=== PATIENT | male | born 1975 | race Hispanic/Latino ===

== ENCOUNTER 2020-11-07 23:44 | Emergency (ER) | payer SELFPAY ==
[~2020-11-07] VITALS: Ht 167.6 cm; Wt 77.1 kg
[2020-11-08 00:23] VITALS: BP 103/62
[2020-11-08] MEDS ORDERED: CLINDAMYCIN IVPB 600MG/50ML 50 ML IV SCH (02:00)
[2020-11-08 02:19] VITALS: BP 105/63
[2020-11-08 02:22] LABS: BASOPHILS % (AUTO) 0.5 % (0.0-5.0); EOSINOPHILS % (AUTO) 5.9 % (0.0-8.0); HEMATOCRIT 38.4 % (42-54); MEAN CORPUSCULAR HEMOGLOBIN 31.7 pg (27.0-33.0); MEAN CORPUSCULAR HGB CONC 34.4 g/dL (32.0-36.0); MEAN CORPUSCULAR VOLUME 92.1 fL (79-99); MONOCYTES % (AUTO) 11.2 % (3.0-13.0); NEUTROPHILS % (AUTO) 58.1 % (40.0-77.0); PLATELET COUNT (AUTO) 299 K/uL (130-400); RED BLOOD CELL COUNT(AUTO) 4.17 MIL/uL (4.50-6.20); RED CELL DISTRIBUTION WIDTH 13.5 % (11.0-15.5); WHITE BLOOD COUNT (AUTO) 7.8 K/uL (4.8-10.8)
[2020-11-08 02:33] LABS: POTASSIUM 3.8 mmol/L (3.5-5.1)
[2020-11-08 02:37] LABS: ALBUMIN 3.3 g/dL (3.5-5.0); BILIRUBIN,TOTAL 0.2 mg/dL (0.2-1.0); TOTAL PROTEIN, SERUM 7.2 g/dL (6.0-8.3)
[2020-11-08 03:51] VITALS: BP 103/50
[2020-11-08] MEDS ORDERED: CLIN300C10 PO (04:16)
[2020-11-08] MEDS ORDERED: IBUP-2070 PO (04:16)
== END 2020-11-08 05:07 | disposition home or self-care (01) ==
LOC: EDH 23:44
DX: L02.414 Cutaneous abscess of left upper limb (principal); L03.114 Cellulitis of left upper limb; R73.9 Hyperglycemia, unspecified; F17.200 Nicotine dependence, unspecified, uncomplicated
CPT/HCPCS: 10060; 36415; 73090; 80053; 85025; 96365; 99284; J3490

== ENCOUNTER 2020-12-25 23:21 | Emergency (ER) | payer SELFPAY ==
[~2020-12-25] VITALS: Ht 167.6 cm; Wt 70.8 kg
[~2020-12-25 23:21] MED LIST: CLIN-141 PO; IBUP-2070 PO
[2020-12-25 23:27] VITALS: BP 123/66
[2020-12-26] MEDS ORDERED: KETOROLAC 15MG/ML VIAL (15MG/ML) IV ONE
[2020-12-26] MEDS ORDERED: CEFTRIAXONE 1G VIAL IVP ONE
[2020-12-26 00:45] LABS: BASOPHILS % (AUTO) 0.8 % (0.0-5.0); EOSINOPHILS % (AUTO) 5.4 % (0.0-8.0); HEMATOCRIT 41.3 % (42-54); LYMPHOCYTES % (AUTO) 29.3 % (21.0-51.0); MEAN CORPUSCULAR HEMOGLOBIN 31.3 pg (27.0-33.0); MEAN CORPUSCULAR HGB CONC 33.7 g/dL (32.0-36.0); MONOCYTES % (AUTO) 10.7 % (3.0-13.0); NEUTROPHILS % (AUTO) 53.5 % (40.0-77.0); PLATELET COUNT (AUTO) 362 K/uL (130-400); RED BLOOD CELL COUNT(AUTO) 4.44 MIL/uL (4.50-6.20); RED CELL DISTRIBUTION WIDTH 13.2 % (11.0-15.5); WHITE BLOOD COUNT (AUTO) 6.5 K/uL (4.8-10.8)
[2020-12-26 00:47] LABS: CREATININE 0.9 mg/dL (0.5-1.5); POTASSIUM 3.6 mmol/L (3.5-5.1)
[2020-12-26 00:52] LABS: ALBUMIN 3.8 g/dL (3.5-5.0); BILIRUBIN,TOTAL 0.3 mg/dL (0.2-1.0); CRP QUANTITATIVE 13.5 mg/L (0.00-9.0)
[2020-12-26] MEDS ORDERED: NAPR-1180 PO (01:28)
[2020-12-26] MEDS ORDERED: CEPH500B PO (01:28)
[2020-12-26 01:57] LABS: ERYTHROCYTE SEDIMENTATION RATE 35 MM/HR (0-15)
== END 2020-12-26 01:39 | disposition home or self-care (01) ==
LOC: EDH 23:21
DX: M70.21 Olecranon bursitis, right elbow (principal); F17.200 Nicotine dependence, unspecified, uncomplicated; Z79.1 Long term (current) use of non-steroidal anti-inflammatories (NSAID)
CPT/HCPCS: 36415; 80053; 85025; 85651; 86140; 96374; 96375; 99284; J0696; J1885

== ENCOUNTER 2021-02-05 14:06 | Emergency (ER) | payer OTHER ==
[~2021-02-05] VITALS: Ht 167.6 cm; Wt 72.6 kg
[~2021-02-05 14:06] MED LIST changes: +CEPH500B PO; +NAPR-1180 PO
[2021-02-05 14:34] VITALS: BP 123/72
[2021-02-05] MEDS ORDERED: SULF1TAB42 PO (14:59)
== END 2021-02-05 15:09 | disposition home or self-care (01) ==
LOC: EDH 14:06
DX: M70.21 Olecranon bursitis, right elbow (principal); Z79.1 Long term (current) use of non-steroidal anti-inflammatories (NSAID); Z90.49 Acquired absence of other specified parts of digestive tract; F17.200 Nicotine dependence, unspecified, uncomplicated; Y93.89 Activity, other specified